=== PATIENT | female | born 1955 | race Caucasian/White ===

== ENCOUNTER 2016-10-24 10:21 | Emergency (ER) | payer OTHER ==
--- NOTE | ~2016-10-24 | CR181 ---
[facility] A Service [facility] RADIOLOGY TEXT RESULTS PATIENT: ESE HSU LOCATION: [facility] : 51 UNIT #: [id number] AGE: [address]: Delaney Peng APRN SEX: F ORDER DR: [id number] [facility] [address] [place], [place] [address] [id number] E MR#: [id number] Acc #: [id number] NAME: ESE HSU : 1955 SEX: F STUDY DATE/TIME: 10/24/2016 10:53 UNIT: CFTX ROOM: STUDY DESCRIPTION: CR Lumbar Spine 2 or 3 Views Attending Physician: Delaney Peng A.P.R.N. Ordering Physician: Ruddy Bolivar M.D. Primary Care Physician: Himanshu Baird M.D. MEDICAL IMAGING REPORT This report is preliminary unless electronic signature is present EXAM Lumbar spine series, 10/24/2016. HISTORY Trauma, fell this a.m. Low back pain. TECHNIQUE AP and 2 lateral views of the lumbar spine are presented. COMPARISON There is no prior imaging of this region for comparison. FINDINGS Five lumbar-type vertebral segments. 3-4 mm anterolisthesis L4 on L5. This is favored to be secondary to disc and facet, predominately facet, degenerative change at this level. Alignment otherwise normal. Vertebral body heights normal. Mild intervertebral disc space narrowing L1-L2 L2-L3, L3-L4. and mild to moderate L5-S1 disc space narrowing. Visualized bony pelvis unremarkable. Visualized lower thoracic spine shows mild degenerative change. Visualized lung bases clear. Bowel gas pattern within normal limits. Dictated by... iGo Melgar M.D. THIS IS AN ELECTRONICALLY VERIFIED REPORT Gio Melgar M.D. at 10/26/2016 2:47 PM DELPHINE/yuliya TD: 10/24/2016 15:04 JOB #: [id number] [facility] A Service [facility] RADIOLOGY TEXT RESULTS PATIENT: ESE HSU LOCATION: [facility] : 51 UNIT #: [id number] AGE: [address]: Delaney Peng APRN SEX: F ORDER DR: MEDICAL IMAGING REPORT Page 1 of 1 COPY
[~2016-10-24 10:21] MED LIST: ADVAIR 250-501 EACH IH; ATARAX PO; BACTROBAN22 GM TP; DIVALPROEX SOD500 M1 PO; DOXYCYCLINE MO100 MG PO; HYDROCODONE-APA1 T55 PO; HYDROCORTISONE30 G2 TOP; HYDROXYZINE HCL10 MG PO; KEFLEX500 M2 PO; LEXAPRO20 MG PO; LORTAB 10-5001 EACH PO; PREDNISONE PO; SYMBICORT; SYMBICORT INH; TOPIRAMATE100 MG PO; TRIAMCINOLONE AC1 GM TOP
== END 2016-10-24 13:42 | disposition home or self-care (01) ==
LOC: CFTX 10:21 → CED 10:21 → CFTX 11:16
DX: S33.5XXA Sprain of ligaments of lumbar spine, initial encounter (principal); S60.212A Contusion of left wrist, initial encounter; J45.909 Unspecified asthma, uncomplicated; W01.198A Fall on same level from slipping, tripping and stumbling with subsequent striking against other object, initial encounter; Y92.009 Unspecified place in unspecified non-institutional (private) residence as the place of occurrence of the external cause
CPT/HCPCS: 72100; 99283

== ENCOUNTER 2016-10-28 16:19 | Emergency (ER) | payer OTHER ==
--- NOTE | ~2016-10-28 | CT98 ---
[facility] A Service [facility] RADIOLOGY TEXT RESULTS PATIENT: ESE HSU LOCATION: [facility] : 51 UNIT #: [id number] AGE: [address]: KOTA VIEYRA SEX: F ORDER DR: [id number] [address] [address] [id number] E MR#: [id number] Acc #: [id number] NAME: ESE HSU : 1955 SEX: F STUDY DATE/TIME: 10/28/2016 17:39 UNIT: SED ROOM: STUDY DESCRIPTION: CT Lumbar Spine Wo Cont Attending Physician: Kota Vieyra Ordering Physician: Kota Vieyra Primary Care Physician: Himanshu Baird M.D. MEDICAL IMAGING REPORT This report is preliminary unless electronic signature is present. EXAMINATION CT lumbar spine without contrast DATE 10/28/2016 HISTORY Fell Sunday with increased lower back pain since that time. COMPARISON Lumbar spine radiographs 10/28/2016 at 16:49 and 10/14/2016. PROCEDURE 2 mm noncontrast axial images through the lumbar spine. Sagittal and coronal reformatted images were obtained. This CT exam was performed with one or more of the following radiation dose reduction techniques: automatic control, adjustment of mA and/or kV according to patient size, and iterative reconstruction. FINDINGS There is an acute fracture of the L1 vertebral body with 44% loss of central vertebral body height. There is 6 mm bony retropulsion into the spinal canal with resulting moderate canal stenosis. Pedicles and lamina appear intact. No subluxation is seen. There is approximately 4-5 mm anterolisthesis L4 upon L5 thought to be related to advanced facet arthropathy at that level. This is unchanged from the previous lumbar spine radiograph of 10/24/2016. At L4-5, there is mild broad-based disc bulge or pseudo bulge suitable related to grade 1 anterolisthesis L4 upon L5. Moderately advanced bilateral facet arthropathy is present. There is borderline to mild canal stenosis and moderate bilateral inferior neural foraminal narrowing. [facility] A Service of [facility] RADIOLOGY TEXT RESULTS PATIENT: ESE HSU LOCATION: [facility] : 51 UNIT #: [id number] AGE: [address]: KOTA VIEYRA SEX: F ORDER DR: At L5-S1, there is moderately advanced right greater than left facet arthropathy with mild broad-based disc bulge barely indenting the thecal sac. No high-grade canal stenosis is seen. Very mild bilateral neural foraminal narrowing. IMPRESSION 1. Acute-appearing compression fracture of the L1 vertebral body with 44% loss of central vertebral body height. There is 6 mm bony retropulsion of the spinal canal with resulting [id number] canal stenosis, but no pedicle and lamina involvement is seen and there is no subluxation. 2. Advanced facet arthropathy at L4-5 with grade 1 anterolisthesis L4 upon L5, [id number]-[id number] bilateral neural foraminal narrowing. 3. Mild broad-based disc bulge at L5-S1 with moderately advanced facet arthropathy, borderline to mild canal stenosis and mild bilateral inferior neural foraminal narrowing. Dictated by... April Warren M.D. THIS IS AN ELECTRONICALLY VERIFIED REPORT April Warren M.D. at 10/29/2016 2:02 PM BK/charles TD: 10/29/2016 00:12 JOB #: [id number] MEDICAL IMAGING REPORT Page 1 of 1
--- NOTE | ~2016-10-28 | CR181 ---
[facility] A Service of [facility] RADIOLOGY TEXT RESULTS PATIENT: ESE HSU LOCATION: [facility] : 51 UNIT #: [id number] AGE: [address]: KOTA VIEYRA SEX: F ORDER DR: [id number] [address] [address] [id number] E MR#: [id number] Acc #: [id number] NAME: ESE HSU : 1955 SEX: F STUDY DATE/TIME: 10/28/2016 16:49 UNIT: SED ROOM: STUDY DESCRIPTION: CR Lumbar Spine 2 or 3 Views Attending Physician: Kota Vieyra Ordering Physician: Kota Vieyra Primary Care Physician: Himanshu Baird M.D. MEDICAL IMAGING REPORT This report is preliminary unless electronic signature is present. EXAM 3 views lumbar spine. DATE 10/28/2016 HISTORY 61-year-old female with lower back pain after falling Sunday.. COMPARISON Lumbar spine series 10/24/2016 FINDINGS There is a an acute-appearing compression fracture involving the L1 vertebral body with approximately 47% loss of vertebral body height but no bony retropulsion or subluxation is seen. This is a new finding since the 10/24/2016 examination. There is 5 mm anterolisthesis L4 upon L5 which is unchanged. The anterolisthesis is thought most likely to be related to degenerative facet arthropathy. Disc space height is maintained at L2-3 through L5-S1. No sacroiliac joint diastasis is seen. No suspicious osteolytic or osteoblastic abnormalities are identified. IMPRESSION 1. Acute-appearing compression fracture of the L1 vertebral body with 47% loss of vertebral body height. No retropulsion or subluxation. This is a new finding since 10/24/2016. 2. Stable 5 mm anterolisthesis of L4 upon L5 likely due to facet arthropathy. [facility] A Service [facility] RADIOLOGY TEXT RESULTS PATIENT: ESE HSU LOCATION: [facility] : 51 UNIT #: [id number] AGE: [address]: KOTA VIEYRA SEX: F ORDER DR: Dictated by... April Warren M.D. THIS IS AN ELECTRONICALLY VERIFIED REPORT April Warren M.D. at 10/29/2016 2:02 PM BK/charles TD: 10/28/2016 23:07 JOB #: [id number] MEDICAL IMAGING REPORT Page 1 of 1
[2016-10-28] MEDS ORDERED: NAPROSYN-EC500 M1 (16:38)
[2016-10-28] MEDS ORDERED: HYDROCODON-ACE118 ML (16:39)
== END 2016-10-28 19:32 | disposition home or self-care (01) ==
LOC: SED 16:19
DX: S32.019A Unspecified fracture of first lumbar vertebra, initial encounter for closed fracture (principal); F32.9 Major depressive disorder, single episode, unspecified; J45.909 Unspecified asthma, uncomplicated; Z98.51 Tubal ligation status; W18.09XA Striking against other object with subsequent fall, initial encounter
CPT/HCPCS: 72100; 72131; 99284